=== PATIENT | male | born 1985 | race American Indian/Alaskan Native ===

== ENCOUNTER 2019-02-17 20:28 | Emergency (ER) | payer MEDICAID ==
[2019-02-17] MEDS ORDERED: cloNIDine 0.1 MG Tab PO ONE (20:40)
--- NOTE | 2019-02-17 20:46 | EDM.PDOC ---
ED HPI GENERAL MEDICAL PROBLEM - General Chief Complaint: Cardiovascular Problem Stated Complaint: BLOOD PRESSUE IS HIGH- [id number] Time Seen by Provider: 02/17/19 20:43 Source of Information: Reports: Patient History Limitations: Reports: No Limitations - History of Present Illness INITIAL COMMENTS - FREE TEXT/NARRATIVE: states BP is high, used to take HCTZ but is also a drug addict and somehow stopped taking any. no other c/o - Related Data Allergies Allergy/AdvReac Type Severity Reaction Status Date / Time No Known Allergies Allergy Verified 02/17/19 20:54 ED ROS GENERAL - Review of Systems Review Of Systems: ROS reveals no pertinent complaints other than HPI. ED EXAM, GENERAL - Physical Exam Exam: See Below Exam Limited By: No Limitations General Appearance: Alert, WD/WN, No Apparent Distress Ears: Hearing Grossly Normal Throat/Mouth: Normal Voice, No Airway Compromise Head: Atraumatic Neck: Non-Tender, Full Range of Motion Respiratory/Chest: No Respiratory Distress Cardiovascular: Regular Rate, Rhythm GI/Abdominal: Soft, Non-Tender Neurological: Alert, Oriented, Normal Cognition, Normal Gait, No Motor/Sensory Deficits Psychiatric: Flat Affect Skin Exam: Warm, Dry, Normal Color Lymphatic: No Adenopathy Course - Vital Signs Last Recorded V/S: Last Vital Signs Temp 35.8 C 02/17/19 20:35 Pulse 74 02/17/19 20:35 Resp 18 02/17/19 20:35 BP 151/92 H 02/17/19 20:54 Pulse Ox 100 02/17/19 20:35 - Orders/Labs/Meds Meds: Medications Discontinued Medications Generic Name Dose Route Start Last Admin Trade Name Azeem PRN Reason Stop Dose Admin Clonidine HCl 0.1 mg 02/17/19 20:40 02/17/19 20:54 Catapres PO 02/17/19 20:41 0.1 mg ONETIME ONE Administration Omeprazole 20 mg 02/17/19 20:49 02/17/19 20:55 Omeprazole PO 02/17/19 20:50 20 mg ONETIME ONE Administration Departure - Departure Time of Disposition: 21:00 Disposition: Home, Self-Care 01 Condition: Good Clinical Impression: Hypertension Qualifiers: Hypertension type: unspecified Qualified Code(s): I10 - Essential (primary) hypertension Instructions: Hypertension, [id number] Forms: ED Department Discharge Additional Instructions: 1) take your BP meds 2) follow up at clinic rx given; HCTZ 50 daily x 10
[2019-02-17] MEDS ORDERED: Omeprazole 20 MG Cap.CR PO ONE (20:49)
== END 2019-02-17 21:08 | disposition home or self-care (01) ==
LOC: DL.ED 20:28
DX: I10 Essential (primary) hypertension (principal)
CPT/HCPCS: 99283; A9270

== ENCOUNTER 2019-03-19 17:48 | Emergency (ER) | payer MEDICAID ==
[2019-03-19] MEDS ORDERED: Acetaminophen/HYDROcodone 325-10 MG Tab PO ONE (19:13)
[2019-03-19] MEDS ORDERED: Clindamycin HCl 150 MG Cap PO ONE (19:13)
--- NOTE | 2019-03-19 19:19 | EDM.PDOC ---
ED HPI GENERAL MEDICAL PROBLEM - General Chief Complaint: General Stated Complaint: SWOLLEN JAW Time Seen by Provider: 03/19/19 19:10 Source of Information: Reports: Patient History Limitations: Reports: No Limitations - History of Present Illness INITIAL COMMENTS - FREE TEXT/NARRATIVE: been having tooth problem few months, worse today. 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 Right Lower Jaw Pain Score (Numeric/FACES): 4 - Related Data Allergies Allergy/AdvReac Type Severity Reaction Status Date / Time No Known Allergies Allergy Verified 03/19/19 18:10 Past Medical History Cardiovascular History: Reports: Hypertension Gastrointestinal History: Reports: GERD Psychiatric History: Reports: Addiction, Other (See Below) Other Psychiatric History: sleeping disorder - Infectious Disease History Infectious Disease History: Reports: Chicken Pox Social & Family History - Family History Family Medical History: Noncontributory - Tobacco Use Smoking Status *Q: Current Every Day Smoker Years of Tobacco use: 14 Packs/Tins Daily: 0.5 Tobacco Use Comment: Pt states he has been using a nicotine patch [id number]. - Caffeine Use Caffeine Use: Reports: Coffee - Recreational Drug Use Recreational Drug Use: Yes Drug Use in Last 12 Months: Yes ED ROS GENERAL - Review of Systems Review Of Systems: ROS reveals no pertinent complaints other than HPI. ED EXAM, GENERAL - Physical Exam Exam: See Below Exam Limited By: No Limitations General Appearance: Alert, WD/WN, Mild Distress, Other (pain) Ears: Hearing Grossly Normal Throat/Mouth: Normal Voice, No Airway Compromise, Other (left lower molar abscess) Head: Atraumatic Neck: Non-Tender, Full Range of Motion Respiratory/Chest: No Respiratory Distress Cardiovascular: Regular Rate, Rhythm GI/Abdominal: Soft, Non-Tender Neurological: Alert, Oriented, Normal Cognition, Normal Gait, No Motor/Sensory Deficits Psychiatric: Tearful Skin Exam: Warm, Dry, Normal Color Lymphatic: No Adenopathy Course - Vital Signs Last Recorded V/S: Last Vital Signs Temp 36.7 C 03/19/19 18:10 Pulse 82 03/19/19 18:10 Resp 16 03/19/19 18:10 BP 133/84 03/19/19 18:10 Pulse Ox 99 03/19/19 18:10 - Orders/Labs/Meds Meds: Medications Discontinued Medications Generic Name Dose Route Start Last Admin Trade Name Freq PRN Reason Stop Dose Admin Hydrocodone Bitart/Acetaminophen 1 tab 03/19/19 19:13 [place] 325-10 Mg PO 03/19/19 19:14 ONETIME ONE Clindamycin HCl 300 mg 03/19/19 19:13 Cleocin PO 03/19/19 19:14 ONETIME ONE Departure - Departure Time of Disposition: 19:17 Disposition: Home, Self-Care 01 Condition: Fair Clinical Impression: Tooth abscess - Discharge Information Instructions: Dental Abscess, [id number] Additional Instructions: 1) avoid solid foods 2) see DENTIST MARILU rx given; clindamycin 300mg qid x 40 vicodin 5/325mg bid x 6
== END 2019-03-19 19:26 | disposition home or self-care (01) ==
LOC: DL.ED 17:48
DX: K04.7 Periapical abscess without sinus (principal); I10 Essential (primary) hypertension; F17.210 Nicotine dependence, cigarettes, uncomplicated
CPT/HCPCS: 99282; A9270

== ENCOUNTER 2019-12-24 18:22 | Emergency (ER) | payer SELFPAY ==
[2019-12-24] MEDS ORDERED: Clindamycin HCl 150 MG Cap PO ONE (21:13)
[2019-12-24] MEDS ORDERED: Acetaminophen/HYDROcodone 325-10 MG Tab PO ONE (21:13)
--- NOTE | 2019-12-24 21:18 | EDM.PDOC ---
ED HPI GENERAL MEDICAL PROBLEM - General Chief Complaint: Skin Complaint Stated Complaint: LUMP UNDER ARM Time Seen by Provider: 12/24/19 21:14 Source of Information: Reports: Patient History Limitations: Reports: No Limitations - History of Present Illness INITIAL COMMENTS - FREE TEXT/NARRATIVE: 3 days h/o right arm absces Right Axillary Pain Score (Numeric/FACES): 7 - Related Data Allergies Allergy/AdvReac Type Severity Reaction Status Date / Time No Known Allergies Allergy Verified 05/06/19 00:10 Home Meds: Home Meds Losartan/Hydrochlorothiazide [Losartan-HCTZ 100-12.5 MG] 1 tab PO DAILY [History] Omeprazole 20 mg PO DAILY 05/06/19 [History] traZODone HCl [Trazodone HCl] 50 mg PO BEDTIME 05/06/19 [History] Past Medical History Cardiovascular History: Reports: Hypertension Gastrointestinal History: Reports: GERD Psychiatric History: Reports: Addiction, Other (See Below) Other Psychiatric History: sleeping disorder - Infectious Disease History Infectious Disease History: Reports: Chicken Pox Social & Family History - Family History Family Medical History: Noncontributory - Tobacco Use Smoking Status *Q: Current Every Day Smoker Years of Tobacco use: 10 Packs/Tins Daily: 0.5 - Caffeine Use Caffeine Use: Reports: Coffee, Energy Drinks, Soda - Recreational Drug Use Recreational Drug Use: Yes Drug Use in Last 12 Months: Yes Recreational Drug Type: Reports: Marijuana/Hashish ED ROS GENERAL - Review of Systems Review Of Systems: Comprehensive ROS is negative, except as noted in HPI. ED EXAM, SKIN/RASH Exam: See Below Exam Limited By: No Limitations General Appearance: Alert, WD/WN, Mild Distress, Other (discomfort) Ears: Hearing Grossly Normal Throat/Mouth: Normal Voice, No Airway Compromise Head: Atraumatic Neck: Non-Tender, Full Range of Motion Respiratory/Chest: No Respiratory Distress Cardiovascular: Regular Rate, Rhythm GI/Abdominal: Soft, Non-Tender Extremities: Other (right arm abscess) Neurological: Alert, Oriented, Normal Cognition, Normal Gait, No Motor/Sensory Deficits Psychiatric: Flat Affect Skin: Warm, Dry, Normal Color Location, Skin: Upper Extremity, Right ED SKIN PROCEDURES - I&D Site: right arm Skin Prep: Providone-Iodine (Betadine) Local Anesthesia: Lidocaine: Other (biofreeze) Area Incised With: 15 Blade Drainage: Purulent, Bloody Probed to Break Up Loculations: No Packed With: None Sterile Dressing: Other (bandaid) Complications: No Course - Vital Signs Last Recorded V/S: Last Vital Signs Temp 37.1 C 12/24/19 18:33 Pulse 102 H 12/24/19 18:33 Resp 14 12/24/19 18:33 BP 167/92 H 12/24/19 18:33 Pulse Ox 98 12/24/19 18:33 - Orders/Labs/Meds Orders: Active Orders 24 hr Category Date Time Status Acetaminophen/HYDROcodone [[place] 325-10 MG] Med 12/24/19 21:13 Once 1 tab PO ONETIME ONE clindamycin HCL [Cleocin] Med 12/24/19 21:13 Once 300 mg PO ONETIME ONE Departure - Departure Time of Disposition: 21:17 Disposition: Home, Self-Care 01 Condition: Good Clinical Impression: Abscess - Discharge Information Instructions: Skin Abscess, [id number] Additional Instructions: 1) keep wound clean dry covered rx given; clindamycin 300mg qid x 40 vicodin 5/325mg bid prn x 6 Sepsis Event Note - Evaluation Sepsis Screening Result: No Definite Risk - Focused Exam Vital Signs: Vital Signs Temp Pulse Resp BP Pulse Ox 12/24/19 18:33 37.1 C 102 H 14 167/92 H 98 Date Exam was Performed: 12/24/19 Time Exam was Performed: 21:14 - My Orders Last 24 Hours: My Active Orders 12/24/19 21:13 Acetaminophen/HYDROcodone [[place] 325-10 MG] 1 tab PO ONETIME ONE clindamycin HCL [Cleocin] 300 mg PO ONETIME ONE - Assessment/Plan Last 24 Hours: My Active Orders 12/24/19 21:13 Acetaminophen/HYDROcodone [[place] 325-10 MG] 1 tab PO ONETIME ONE clindamycin HCL [Cleocin] 300 mg PO ONETIME ONE
== END 2019-12-24 21:25 | disposition home or self-care (01) ==
LOC: DL.ED 18:22
DX: L02.413 Cutaneous abscess of right upper limb (principal); F17.210 Nicotine dependence, cigarettes, uncomplicated; I10 Essential (primary) hypertension; K21.9 Gastro-esophageal reflux disease without esophagitis; Z79.899 Other long term (current) drug therapy
CPT/HCPCS: 10060; 87070; 99283; A9270; 87077; 87186